=== PATIENT | female | born 2000 | race Caucasian/White ===

== ENCOUNTER 2021-08-11 22:09 | Inpatient (IN) | payer BC, MEDICAID, SELFPAY ==
[2021-08-11] VITALS (30 sets, daily range): BP systolic 103–174; BP diastolic 52–136; PULSE 84–127; RESP 16–17; O2SAT 98–100; BMI 28.9
[2021-08-11] MEDS: fentaNYL 50 mcg/mL INJ 2mL IVP (19:53)
[2021-08-11 20:44] LABS: Basophils # 0.1 10^3/uL (0.0-0.1); Basophils % 0.7 %; Eosinophils # 0.1 10^3/uL (0.0-0.8); Eosinophils % 0.8 %; Hematocrit 35.8 % (37.0-47.0); Hemoglobin 11.2 g/dL (11.5-15.3); Lymphocytes # 3.3 10^3/uL (0.8-4.8); Lymphocytes % 19.6 %; Mean Corpuscular HGB Conc 31.3 g/dL (30.0-36.0); Mean Corpuscular Hemoglobin 27.2 pg (28.0-34.0); Mean Corpuscular Volume 86.9 fl (81-99); Monocytes # 0.9 10^3/uL (0.2-0.9); Monocytes % 5.4 %; Neutrophils # 12.24 10^3/uL (1.8-7.7); Neutrophils % 72.1 %; Nucleated Red Blood Cells % 0 %; Platelet Count 367 10^3/cmm (130-400); Red Blood Count 4.12 10^6/uL (4.1-5.3)
--- NOTE | 2021-08-11 21:21 | ANES.PREANE2 ---
Pre-Anesthetic Assessment Height/Weight: Height 1.57 m Weight 71.668 kg Pulse Resp BP 97 17 131/74 08/11/21 20:19 08/11/21 19:53 08/11/21 20:19 Preop Diagnosis: labor pain epidural Was Beta Viviana taken within 24 hours: N/A Was Clonidine taken within 24 hours: N/A Social No alcohol Exam alert, oriented x 3, clear to auscultation bilaterally and regular rate & rhythm Airway Submandibular: within normal limits Cervical ROM: within normal limits Mallampati: Class II Dentition: full Pulmonary None reported CV/HEM None reported None reported Hepatic None reported GI None reported Metabolic None reported Musc/skel None reported Neuropsych None reported Anesthetic Plan ASA status: 2 Anesthesia: Regional (specify below) Risk of > 500 ml blood loss (7ml/kg in children): No Medications/Allergies Current Medications Generic Name Dose Route Start Last Admin Trade Name Freq PRN Reason Stop Dose Admin Fentanyl 25 - 100 mcg 08/11/21 18:32 08/11/21 19:53 Fentanyl 50 Mcg/Ml Inj 2ml IVP 25 mcg Q1H PRN Administration SEVERE PAIN PFSH Anesthesia Female Reproductive History : 1 Data Anesthesia : 08/11/21 18:20 Short CBC 08/11/21 Range/Units 18:20 WBC 17.0 H (4.0-10.0) 10^3/uL Hgb 11.2 L (11.5-15.3) g/dL Hct 35.8 L (37.0-47.0) % MCV 86.9 (81-99) fl Plt Count 367 (130-400) 10^3/cmm Neut % (Auto) 72.1 % Neut # (Auto) 12.24 H (1.8-7.7) 10^3/uL Cardiac Studies: No Data to Display
--- NOTE | 2021-08-11 21:47 | ANES.PROC ---
Anesthesia Procedures Procedure/Date: 08/11/21 epidural Procedure Narrative: epidural complete, bolus given, epidural pump initiated with DIGITAL WATCH ASSEMBLER education given, vitals taken during procedure using OBIX system and satisfactory throughout, patient admits to decrease pain, report of procedure to OB RN Epidural: Time Out Performed: Yes Consents Signed: Procedure Consent Consent: requested by attending/covering physician, from patient, risks and benefits reviewed and patient agrees to proceed Lumbar Level: L3-L4 Epidural position: sitting Epidural procedure: sterile prep of area, 1% lidocaine to numb the area (3 mL), 18 g needle, negative for paresthesia passed, neg for paresthesia, test dose given, 1.5% xylocaine 1:200k epi (5 mL), 0.2% Ropivacaine bolus ml (5 mL), placed PCEA, no systemic response, sterile dressing applied, L.U.D. no apparent complications and 0.2% Ropiavacaine @ mls/hr (13 mL/hr)
--- NOTE | 2021-08-11 22:20 | PM.OPHPUD ---
Labor & Delivery H&P Update Date of Procedure: August 11, 2021 Date H&P Performed: 08/07/21 Changes to previous documentation: Spontaneous rupture of membranes Admission Diagnosis: 21-year-old 1 at 38 weeks estimated gestational age with spontaneous rupture of membranes Preop diagnosis: labor pain Planned procedure: Spontaneous vaginal delivery Other information: The patient is an otherwise healthy 21-year-old female at 38 weeks estimated gestational age. She had spontaneous rupture of membranes within a couple of hours of arriving at the hospital. She presents with spontaneous rupture of membranes and active labor. Her has been unremarkable. Her blood type is O+. Her glucose screen was negative. Her GBS status was negative. She is rubella nonimmune. The remainder of her labs are within normal limits. Related Problem List Diagnoses (1) 38 weeks gestation of : I anticipate routine labor, delivery, and . (2) Spontaneous rupture of membranes:
--- NOTE | 2021-08-11 22:55 | P.PCNOB_ITS ---
Delivery Note: Date of delivery: August 11, 2021 Pre-delivery diagnoses: 21-year-old 1 at 38 weeks estimated gestational age presenting with spontaneous rupture membranes Post-delivery diagnoses: Status post spontaneous vaginal delivery Procedure: Spontaneous vaginal delivery Findings: 200 mL Pre-Delivery Course: The patient presented to the hospital with a complaint of spontaneous rupture membranes. She was noted to have amniotic fluid in her vaginal vault and was grossly ruptured. She continued to progress and received an epidural. She then progressed to complete without difficulty. Delivery: DELIVERY: The patient progressed to complete without difficulty. She delivered a male with a weight of 6 pounds 4 ounces with Apgars of 9, 9. The baby was delivered from the OTTO position and placed on the mother's abdomen. The cord was then clamped and cut. There was a body cord x1. There was no meconium. The placenta and 3 vessel cord were delivered intact shortly thereafter. The perineum and vaginal vault were carefully examined. A slight first-degree posterior midline tear was noted. It did not require repair.. Both the mother and the baby were in stable condition. Post-Delivery Status: Good A&P Assessment and plan (1) Spontaneous rupture of membranes: Status: Acute (2) 38 weeks gestation of : Status: Acute (3) Spontaneous vaginal delivery: I anticipate routine care. If she does well, she should be discharged on Thursday. Status: Acute Coding Level of Care Code Acute Cooler Room Worker for Chg Fwd Diagnoses Spontaneous rupture of membranes 38 weeks gestation of Z3A.38 Spontaneous vaginal delivery O80
[2021-08-12] VITALS (14 sets, daily range): BP systolic 116–135; BP diastolic 57–82; PULSE 76–110; RESP 16–18; TEMP 36.7–37.5; O2SAT 96–98
--- NOTE | 2021-08-12 08:36 | PM.OBGYPN ---
TRAINING AND DEVELOPMENT OFFICER Subjective Subjective: Interval history: The patient is doing well. Her bleeding has been within normal limits. Breast-feeding has been somewhat challenging since the baby has not been latching well. Her pain is well controlled. She has no concerns. Labor: Station: 0 Amniotic Membrane Status: Leaking Monitor Mode: Palpation Contraction Pattern: Regular Vitals/I&O/Wt Last Vital Signs Temp 98.8 F 08/12/21 04:40 Pulse 77 08/12/21 06:18 Resp 16 08/12/21 06:18 BP 124/75 08/12/21 06:18 Pulse Ox 98 08/12/21 06:18 08/11/21 08/12/21 08/12/21 22:59 06:59 14:59 Output Total 700 / 700 Balance -700 / -700 Weight last 48 hrs Weight 158 lb Physical Exam Narrative: EXAM NARRATIVE: The patient is alert. She appears comfortable. Her heart has a regular rate and rhythm with no murmurs appreciated. Lungs are clear to auscultation bilaterally. Her fundus is firm and below the umbilicus. Data : 08/11/21 18:20 A&P Assessment and plan (1) Spontaneous vaginal delivery: She is to continue routine care. Nurses will continue to assist her in breast-feeding. Status: Acute (2) 38 weeks gestation of : Status: Acute Attestations Medical Necessity Statement*: I anticipate routine care. I anticipate discharge tomorrow Coding Level of Care Code Acute Fiscal Economist for Chg Fwd Diagnoses Spontaneous vaginal delivery O80 38 weeks gestation of Z3A.38
[2021-08-12] MEDS: ibuprofen 800 mg tablet PO ×3 (08:52→23:10)
[2021-08-12] MEDS: prenatal vitamin Capsule 1 CAP PO (08:52)
[2021-08-12] MEDS: docusate sodium 100 mg Capsule PO (08:52)
[2021-08-12 11:43] LABS: Hematocrit 30.8 % (37.0-47.0); Hemoglobin 9.8 g/dL (11.5-15.3); Mean Corpuscular HGB Conc 31.8 g/dL (30.0-36.0); Mean Corpuscular Hemoglobin 27.7 pg (28.0-34.0); Mean Platelet Volume 11.4 fL (7.4-10.4); Platelet Count 303 10^3/cmm (130-400); Red Blood Count 3.54 10^6/uL (4.1-5.3); Red Cell Distribution Width 13.9 % (12.1-15.1); White Blood Count 23.3 10^3/uL (4.0-10.0)
--- NOTE | 2021-08-12 13:39 | ANE.PACU2 ---
Inpatient post-anesthesia follow up: Airway intact: Yes Vital signs: Temperature 98.0 F Pulse Rate 76 Respiratory Rate 18 Blood Pressure 123/69 Pulse Oximetry 98 Oxygen Delivery Me thod Room Air Oxygen Flow Rate Fraction of Inspir ed Oxygen Hydration adequate: Yes Nausea and vomiting: Yes Pain level: 2 Mental status: Baseline
[2021-08-13 04:50] VITALS: BP 126/80; PULSE 85; RESP 16; TEMP 36.7
--- NOTE | 2021-08-13 07:30 | P.DS_ITS ---
Discharge Providers SPRING MANUFACTURING SET UP TECHNICIAN Date of Admission: 08/11/21 22:09 Date of Discharge: 08/13/21 Attending Provider at Admission: Luis Michel MD Attending Provider at Discharge: Luis Michel MD Primary Care Provider: Luis Michel MD Diagnoses at Discharge Discharge Diagnosis (1) Spontaneous rupture of membranes: Status: Acute (2) 38 weeks gestation of : Status: Acute (3) Spontaneous vaginal delivery: Status: Acute Reason for Visit Reason for Visit: contractions, possible ROM Hospital Course Hospital Course The patient presented to the hospital with spontaneous rupture of membranes. She progressed to complete and had an unremarkable vaginal delivery of a healthy appearing male . Her course was also unremarkable. Her bleeding was within normal limits. Her pain was well controlled. She initially had some difficulty with breast-feeding, but that improved dramatically with a nipple shield. There were no other concerns. Information Peripartum Data: Delivery Method: Vaginal Physical Exam Narrative: EXAM NARRATIVE: The patient is alert. She appears comfortable. Her heart has a regular rate and rhythm with no murmurs appreciated. Lungs are clear to auscultation bilaterally. Her fundus is firm and below the umbilicus. Discharge Data Studies Completed and Pending Laboratory Results WBC 23.3 10^3/uL (4.0-10.0) H 08/12/21 10:55 RBC 3.54 10^6/uL (4.1-5.3) L 08/12/21 10:55 Hgb 9.8 g/dL (11.5-15.3) L 08/12/21 10:55 Hct 30.8 % (37.0-47.0) L 08/12/21 10:55 MCV 87.0 fl (81-99) 08/12/21 10:55 MCH 27.7 pg (28.0-34.0) L 08/12/21 10:55 MCHC 31.8 g/dL (30.0-36.0) 08/12/21 10:55 RDW 13.9 % (12.1-15.1) 08/12/21 10:55 Plt Count 303 10^3/cmm (130-400) 08/12/21 10:55 MPV 11.4 fL (7.4-10.4) H 08/12/21 10:55 Neut % (Auto) 72.1 % 08/11/21 18:20 Lymph % (Auto) 19.6 % 08/11/21 18:20 [place] % (Auto) 5.4 % 08/11/21 18:20 Eos % (Auto) 0.8 % 08/11/21 18:20 Baso % (Auto) 0.7 % 08/11/21 18:20 Neut # (Auto) 12.24 10^3/uL (1.8-7.7) H 08/11/21 18:20 Lymph # (Auto) 3.3 10^3/uL (0.8-4.8) 08/11/21 18:20 [place] # (Auto) 0.9 10^3/uL (0.2-0.9) 08/11/21 18:20 Eos # (Auto) 0.1 10^3/uL (0.0-0.8) 08/11/21 18:20 Baso # (Auto) 0.1 10^3/uL (0.0-0.1) 08/11/21 18:20 Nucleated RBC % (auto) 0 % 08/11/21 18:20 Nucleated RBCs # 0.0 /100WBC 08/11/21 18:20 Vitals Last Vital Signs Temp 98.0 F 08/13/21 04:50 Pulse 85 08/13/21 04:50 Resp 16 08/13/21 04:50 BP 126/80 08/13/21 04:50 Pulse Ox 98 08/12/21 06:18 Discharge Plan Discharge Patient Disposition: Home Condition: Stable Prescriptions: New ibuprofen 800 mg Tablet 800 mg PO TID Qty: 45 0RF Continued [id number] 1 mg Tablet PO 0RF Discharge Orders: Discharge Order (Routine); Ordered 08/13/21 Ordered By: Luis Michel Referrals: Luis Michel MD [Primary Care Provider] - 6 Weeks Discharge Diet: Usual diet Discharge Activity: Limit activity as instructed Discharge Attestations SPRING MANUFACTURING SET UP TECHNICIAN Time Spent in Discharge Care*: less than 30 min Coding Level of Care Code Acute Kitchen Aide for Chg Fwd Diagnoses Spontaneous rupture of membranes 38 weeks gestation of Z3A.38 Spontaneous vaginal delivery O80
[2021-08-13] MEDS: prenatal vitamin Capsule 1 CAP PO (09:17)
[2021-08-13] MEDS: docusate sodium 100 mg Capsule PO (09:18)
[2021-08-13] MEDS: ibuprofen 800 mg tablet PO (09:18)
[2021-08-13] MEDS: measles,mumps,rubella pf Vial (w/diluent) 0.5 ML SUBCUT (09:19)
[2021-08-13 10:08] VITALS: BP 123/84; PULSE 90; RESP 16; TEMP 36.6; TEMP 36.7; O2SAT 98
[2021-08-13 10:30] VITALS: BP 123/84; PULSE 90; RESP 16; TEMP 36.7; O2SAT 98
== END 2021-08-13 10:30 | disposition home or self-care (01) | DRG 807 ==
LOC: OPOB 22:10 → OBGYN 22:10
PROVIDERS: Admitting Provider Family Medicine; PCP Family Medicine; Visit Provider Family Medicine
DX: O70.0 First degree perineal laceration during delivery (principal); Z37.0 Single live birth; Z3A.38 38 weeks gestation of pregnancy
CPT/HCPCS: 12345; 36415; 59025; 59409; 85025; 85027; 90707; 96372; 96374; J3010